=== PATIENT | female | born 1960 | race Caucasian/White ===

== ENCOUNTER → 2020-05-17 | Outpatient (CLI) | payer MEDICARE ==
--- NOTE | 2020-05-17 14:45 | US ---
EXAM DESCRIPTION: Abdomen,Complete CLINICAL HISTORY: left lower quadrant pain COMPARISON: None Available. TECHNIQUE: Complete abdominal ultrasound FINDINGS: Visualized portions of the pancreas are unremarkable. No peripancreatic fluid. Bowel gas obscures some areas. Normal caliber of the aorta. Normal appearance of the inferior vena cava. Liver parenchyma is homogeneous in texture with normal to slightly increased echogenicity. Liver length of 16.8 cm is within normal limits. No liver mass or intrahepatic bile duct dilatation. No liver surface irregularity. Normal appearance of hepatic veins and portal vein. Gallbladder appears normal with no intraluminal stones. No gallbladder wall thickening. Common bile duct is normal in caliber measuring 6.5 mm. The right kidney measures 9.5 cm in length. Normal renal cortical echogenicity. The renal cortical thickness appears normal. No right renal mass, shadowing stone or cyst. There is no hydronephrosis. Spleen is normal in size. No focal splenic lesion. The left kidney measures 9.6 cm in length. Normal renal cortical echogenicity. The renal cortical thickness appears normal. No left renal mass, shadowing stone or cyst. There is no hydronephrosis. IMPRESSION: No acute upper abdominal process. Electronically signed by: Silver Denise MD 05/17/2020 2:43 PM [employer]
== END ==
LOC: US 08:45
DX: R10.32 Left lower quadrant pain (principal); R79.9 Abnormal finding of blood chemistry, unspecified; R94.5 Abnormal results of liver function studies; Z72.89 Other problems related to lifestyle